=== PATIENT | female | born 1970 | race Asian ===

== ENCOUNTER 2022-01-18 06:04 | Day surgery (SDC) | payer OTHER ==
[~2022-01-18] VITALS: Ht 157.5 cm; Wt 68.0 kg
[2022-01-18] MEDS ORDERED: fentaNYL citrate 0.05 MG/ML VIAL ONE (07:09)
[2022-01-18] MEDS ORDERED: diphenhydrAMINE 50 MG/ML VIAL ONE (07:09)
[2022-01-18] MEDS ORDERED: LIDOCAINE 2% 100 MG/5 ML UJET TP ONE (07:10)
[2022-01-18] MEDS ORDERED: MIDAZOLAM 5 MG/5 ML VIAL ONE (07:10)
[2022-01-18] MEDS ORDERED: fentaNYL citrate 0.05 MG/ML VIAL IVP ONE (13:20)
[2022-01-18] MEDS ORDERED: MIDAZOLAM 2 MG/2 ML VIAL IVP ONE (13:20)
== END 2022-01-18 09:10 | disposition home or self-care (01) ==
LOC: MDS 06:04 → MMU 06:14 → MDS 09:10
PROVIDERS: ATTEND Internal Medicine Gastroenterology
DX: R19.5 Other fecal abnormalities (principal); D12.5 Benign neoplasm of sigmoid colon; K62.5 Hemorrhage of anus and rectum; Z86.010 Personal history of colon polyps; I10 Essential (primary) hypertension; E78.00 Pure hypercholesterolemia, unspecified; Z79.899 Other long term (current) drug therapy; Z20.822 Contact with and (suspected) exposure to COVID-19
CPT/HCPCS: 45385; 81025; 87426; 88305; J2250; J3010; J1200